=== PATIENT | male | born 1980 | race American Indian/Alaskan Native ===

== ENCOUNTER 2022-03-18 21:37 | Emergency (ER) | payer SELFPAY ==
[2022-03-19] MEDS ORDERED: KETOROLAC 30 MG/1 ML INJ IM ONE (04:12)
[2022-03-19] MEDS ORDERED: dexAMETHasone 20 MG/5 ML VIAL IV ONE (04:12)
--- NOTE | 2022-03-19 04:26 | Emergency Department Report ---
ED Back Pain/Injury HPI - General Chief Complaint: Back Pain/Injury Stated Complaint: BACK PAIN Time Seen by Provider: 03/19/22 04:11 Source: patient Limitations: No Limitations - History of Present Illness Initial Comments: Patient 53-year-old male who presents for bilateral lower back pain radiating to bilateral lower extremities to 3 days. Patient states history of same 6 weeks ago. 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 Lifting reaching and pulling greater than 8 hours a day. Patient denies other fall injury or trauma. Pain is described as 7/10 sharp achy burning tingling there is been no paralysis however no loss or decrease in bowel or bladder function. Pain is exacerbated by walking reaching and bending. Pain is relieved by nothing tried. - Related Data Previous Rx's Medication Instructions Recorded Last Taken Type Cyclobenzaprine [Flexeril] 10 mg PO BID PRN #21 tab 03/19/22 Unknown Rx Menthol/Camphor [[place] 1 applicatio TP Q6H PRN #1 tube 03/19/22 Unknown Rx Ointment] Naproxen 500 mg PO BID PRN #30 tab 03/19/22 Unknown Rx Allergies Allergy/AdvReac Type Severity Reaction Status Date / Time No Known Allergies Allergy Unverified 03/18/22 23:05 ED Review of Systems ROS: Stated complaint: BACK PAIN Other details as noted in HPI ED Past Medical Hx - Medications Home Medications: Home Medications Medication Instructions Recorded Confirmed Last Taken Type Cyclobenzaprine [Flexeril] 10 mg PO BID PRN #21 tab 03/19/22 Unknown Rx Menthol/Camphor [[place] 1 applicatio TP Q6H PRN #1 tube 03/19/22 Unknown Rx Ointment] Naproxen 500 mg PO BID PRN #30 tab 03/19/22 Unknown Rx ED Physical Exam - General Limitations: No Limitations ED Course Vital Signs 03/18/22 23:04 Temperature 98.9 F Pulse Rate 76 Respiratory 16 Rate Blood Pressure 107/62 [Right] O2 Sat by Pulse 96 Oximetry ED Medical Decision Making - Radiology Data Radiology results: report reviewed, image reviewed CHEST 2 VIEWS INDICATION / CLINICAL INFORMATION: sicke Cell crisis. COMPARISON: 11/22/2021 FINDINGS: SUPPORT DEVICES: Unchanged. HEART / MEDIASTINUM: No significant abnormality. LUNGS / PLEURA: No significant pulmonary or pleural abnormality. No pneumothorax. ADDITIONAL FINDINGS: No significant additional findings. IMPRESSION: 1. No acute findings. Signer Name: Tereso Cohen DO Signed: 03/19/2022 4:04 AM Workstation Name: [id number] Transcribed By: EVA Dictated By: TERESO COHEN DO Electronically Authenticated By: TERESO COHEN DO Signed Date/Time: 03/19/22403 DD/ 2 TD/TT: - Medical Decision Making Patient 53-year-old male who presents for bilateral lower back pain radiating to bilateral lower extremities to 3 days. Patient states history of same 6 weeks ago. 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 Patient denies other fall injury or trauma. Pain is described as 7/10 sharp achy burning tingling there is been no paralysis however no loss or decrease in bowel or bladder function. Pain is exacerbated by walking reaching and bending. Pain is relieved by nothing tried. Xrays negative for fracture no herniation no subluxation no dislocation. No soft tissue abnormality. Patient states pain is improved to 1/10 with medications given in ED plan DC to home, NSAIDs as needed pain muscle relaxants, analgesic balm, back exercises. Follow-up with primary care doctor in 2 to 3 days. Return to emergency department should symptoms worsen. Patient verbalized agreement and understanding of discharge plan patient DC'd home in stable condition at this time. Critical care attestation.: If time is entered above; I have spent that time in minutes in the direct care of this critically ill patient, excluding procedure time. ED Disposition Clinical Impression: Low back strain Qualifiers: Encounter type: initial encounter Qualified Code(s): S39.012A - Strain of muscle, fascia and tendon of lower back, initial encounter Disposition: HOME / SELF CARE / HOMELESS Is pt being admited?: No Does the pt Need Aspirin: No Condition: Stable Instructions: Low Back Sprain or Strain Rehab-SportsMed Additional Instructions: Take medications as prescribed, moist heat therapy as directed. Back exercises as directed follow-up with your doctor in 2 to 3 days. Return to emergency department should symptoms worsen. Prescriptions: Cyclobenzaprine [Flexeril] 10 mg PO BID PRN #21 tab PRN Reason: Muscle Spasm Naproxen 500 mg PO BID PRN #30 tab PRN Reason: pain Menthol/Camphor [[place] Ointment] 1 applicatio TP Q6H PRN #1 tube PRN Reason: pain Referrals: ABRAHAM REYNOSO MD [Staff Physician] - 3-5 Days Forms: Work/School Release Form(ED) Time of Disposition: 05:47
--- NOTE | 2022-03-19 04:35 | XRay Report ---
LUMBAR SPINE 3 VIEWS INDICATION / CLINICAL INFORMATION: low back pain. COMPARISON: None available. FINDINGS: VERTEBRAE: No acute fracture. No significant malalignment. DISC SPACES / FACET JOINTS:No significant abnormality. PARASPINAL SOFT TISSUES:No significant abnormality. ADDITIONAL FINDINGS: None. Signer Name: Tereso Cohen DO Signed: 03/19/2022 4:30 AM Workstation Name: [id number]
[2022-03-19 05:55] VITALS: BP 110/65
== END 2022-03-19 05:55 | disposition home or self-care (01) ==
LOC: ED 21:37
DX: S39.012A Strain of muscle, fascia and tendon of lower back, initial encounter (principal); X50.0XXA Overexertion from strenuous movement or load, initial encounter; X50.9XXA Other and unspecified overexertion or strenuous movements or postures, initial encounter; Y93.89 Activity, other specified; Y92.59 Other trade areas as the place of occurrence of the external cause; Y99.0 Civilian activity done for income or pay
CPT/HCPCS: 72100; 96372; 96374; 99283; J1100; J1885